=== PATIENT | male | born 1985 | race African-American/Black ===

== ENCOUNTER 2020-04-23 15:10 | Emergency (ER) | payer SELFPAY ==
--- NOTE | 2020-04-23 16:22 | ER ---
Nurse's Notes [facility] Name: Yoav Vogel Age: 35 yrs Sex: Male : 1985 Arrival Date: 04/23/2020 Time: 15:13 Bed 8 Private MD: Diagnosis: Muscle spasm of back Presentation: 04/23 15:20 Chief complaint: Patient states: Left posterior shoulder pain x 1 week, worse in the jl7 morning, denies trauma. Coronavirus screen: Client denies travel out of the [place] in the last 14 days. At this time, the client does not indicate any symptoms associated with coronavirus-19. Ebola Screen: No symptoms or risks identified at this time. Initial Sepsis Screen: Does the patient meet any 2 criteria? No. Patient's initial sepsis screen is negative. Does the patient have a suspected source of infection? No. Patient's initial sepsis screen is negative. Risk Assessment: Do you want to hurt yourself or someone else? Patient reports no desire to harm self or others. Onset of symptoms was April 16, 2020. Care prior to arrival: None. 15:20 Method Of Arrival: Ambulatory 7 15:20 Acuity: TYSON 4 jl7 Triage Assessment: 15:22 General: Appears in no apparent distress. uncomfortable, Behavior is calm, cooperative, jl7 appropriate for age. Pain: Complains of pain in left scapular area Pain currently is 8 out of 10 on a pain scale. Musculoskeletal: Swelling absent. Historical: - Allergies: 15:22 No Known Allergies; jl7 - Home Meds: 15:22 None [Active]; jl7 - PMHx: 15:22 None; jl7 - PSHx: 15:22 None; jl7 - Immunization history:: Adult Immunizations unknown. - Social history:: Smoking status: Patient denies any tobacco usage or history of. Screenin:48 Abuse screen: Denies threats or abuse. Denies injuries from another. Nutritional iw screening: No deficits noted. Tuberculosis screening: No symptoms or risk factors identified. Fall Risk None identified. Assessment: 16:00 General: Appears in no apparent distress. comfortable, Behavior is calm, cooperative. iw Pain: Complains of pain in left subscapular area and left scapular area. Neuro: Level of Consciousness is awake, alert, obeys commands, Oriented to person, place, time, situation, Moves all extremities. Cardiovascular: Patient's skin is warm and dry. Respiratory: Respiratory effort is even, unlabored, Respiratory pattern is regular, symmetrical. GI: No signs and/or symptoms were reported involving the gastrointestinal system. Derm: Skin is intact, is healthy with good turgor. Musculoskeletal: Range of motion: intact in all extremities, Reports pain in left subscapular area and left scapular area. Vital Signs: 15:20 BP 129 / 77; Pulse 60; Resp 17; Temp 98; Pulse Ox 100% ; Weight 68.04 kg; Height 5 ft. jl7 11 in. (180.34 cm); Pain 8/10; 15:20 Body Mass Index 20.92 (68.04 kg, 180.34 cm) jl7 ED Course: 15:13 Patient arrived in ED. as 15:22 Triage completed. jl7 15:22 Arm band placed on right wrist. jl7 15:52 [facility] jr8 15:52 Bruce Crain MD is Attending Physician. jr8 16:00 Patient has correct armband on for positive identification. iw 16:07 Zulay Vargas, RN is Primary Nurse. iw 16:48 No provider procedures requiring assistance completed. Patient did not have IV access iw during this emergency room visit. Administered Medications: 16:35 Drug: TORadol 30 mg Route: IM; Site: right deltoid; iw 16:45 Follow up: Response: No adverse reaction iw Outcome: 16:21 Discharge ordered by . jr8 16:48 Discharged to home ambulatory. iw 16:48 Condition: good 16:48 Discharge instructions given to patient, Instructed on discharge instructions, follow up and referral plans. medication usage, Demonstrated understanding of instructions, follow-up care, medications, Prescriptions given X 2. 16:49 Patient left the ED. iw Signatures: Briseida Carson Irene, RN RN iw Rafael Lynne PA PA jr8 Yuriy Valerio RN RN jl7
--- NOTE | 2020-04-23 16:22 | EDPHYS ---
Physician Documentation [facility] Name: Yoav Vogel Age: 35 yrs Sex: Male : 1985 Arrival Date: 04/23/2020 Time: 15:13 Bed 8 Private MD: ED Physician Bruce Crain HPI: 04/23 16:12 This 35 yrs old Black Male presents to ER via Ambulatory with complaints of Back Pain. jr8 16:12 The pt presented with L paraspinal/scapular back pain since . The pt denies jr8 trauma, and states he just woke up with it hurting. Denies loss of bowel or bladder, numbness, tingling, or difficulty ambulating. Reports pain when rotating to the left and bending over. The patient is calm and in no distress at this time.. 16:19 Associated signs and symptoms: The patient has no apparent associated signs or jr8 symptoms. Severity of symptoms: At their worst the symptoms were mild, in the emergency department the symptoms are unchanged. The patient has not experienced similar symptoms in the past. Historical: - Allergies: 15:22 No Known Allergies; jl7 - Home Meds: 15:22 None [Active]; jl7 - PMHx: 15:22 None; jl7 - PSHx: 15:22 None; jl7 - Immunization history:: Adult Immunizations unknown. - Social history:: Smoking status: Patient denies any tobacco usage or history of. ROS: 16:19 Eyes: Negative for injury, pain, redness, and discharge, ENT: Negative for injury, jr8 pain, and discharge, Neck: Negative for injury, pain, and swelling, Cardiovascular: Negative for chest pain, palpitations, and edema, Respiratory: Negative for shortness of breath, cough, wheezing, and pleuritic chest pain, Abdomen/GI: Negative for abdominal pain, nausea, vomiting, diarrhea, and constipation, MS/Extremity: Negative for injury and deformity, Skin: Negative for injury, rash, and discoloration, Neuro: Negative for headache, weakness, numbness, tingling, and seizure. 16:19 Back: Positive for pain at rest, pain with movement, of the left scapular area and left subscapular area. Exam: 16:19 Eyes: Pupils equal round and reactive to light, extra-ocular motions intact. Lids and jr8 lashes normal. Conjunctiva and sclera are non-icteric and not injected. Cornea within normal limits. Periorbital areas with no swelling, redness, or edema. ENT: Nares patent. No nasal discharge, no septal abnormalities noted. Tympanic membranes are normal and external auditory canals are clear. Oropharynx with no redness, swelling, or masses, exudates, or evidence of obstruction, uvula midline. Mucous membranes moist. Neck: Trachea midline, no thyromegaly or masses palpated, and no cervical lymphadenopathy. Supple, full range of motion without nuchal rigidity, or vertebral point tenderness. No Meningismus. Cardiovascular: Regular rate and rhythm with a normal S1 and S2. No gallops, murmurs, or rubs. Normal PMI, no JVD. No pulse deficits. Respiratory: Lungs have equal breath sounds bilaterally, clear to auscultation and percussion. No rales, rhonchi or wheezes noted. No increased work of breathing, no retractions or nasal flaring. Abdomen/GI: Soft, non-tender, with normal bowel sounds. No distension or tympany. No guarding or rebound. No evidence of tenderness throughout. Skin: Warm, dry with normal turgor. Normal color with no rashes, no lesions, and no evidence of cellulitis. MS/ Extremity: Pulses equal, no cyanosis. Neurovascular intact. Full, normal range of motion. Neuro: Awake and alert, GCS 15, oriented to person, place, time, and situation. Cranial nerves II-XII grossly intact. Motor strength 5/5 in all extremities. Sensory grossly intact. Cerebellar exam normal. Normal gait. 16:19 Back: pain, is absent, ROM is painful, with all movement, normal spinal alignment noted, CVA tenderness, is absent. Vital Signs: 15:20 BP 129 / 77; Pulse 60; Resp 17; Temp 98; Pulse Ox 100% ; Weight 68.04 kg; Height 5 ft. jl7 11 in. (180.34 cm); Pain 8/10; 15:20 Body Mass Index 20.92 (68.04 kg, 180.34 cm) jl7 MDM: 15:52 Patient medically screened. jr8 16:19 Data reviewed: vital signs, nurses notes, and as a result, I will discharge patient. jr8 Data interpreted: Pulse oximetry: on room air is 100 %. Interpretation: normal. Counseling: I had a detailed discussion with the patient and/or guardian regarding: the historical points, exam findings, and any diagnostic results supporting the discharge/admit diagnosis, the need for outpatient follow up, a family practitioner, to return to the emergency department if symptoms worsen or persist or if there are any questions or concerns that arise at home. Administered Medications: 16:35 Drug: TORadol 30 mg Route: IM; Site: right deltoid; iw 16:45 Follow up: Response: No adverse reaction iw Disposition: 04/24 13:53 Co-signature as Attending Physician, Bruce Crain MD I agree with the assessment and itz plan of care. Disposition: 04/23/20 16:21 Discharged to Home. Impression: Muscle spasm of back. - Condition is Stable. - Discharge Instructions: Muscle Cramps and Spasms, Back Exercises, [id number], Heat Therapy. - Prescriptions for Ibuprofen 800 mg Oral Tablet - take 1 tablet by ORAL route every 12 hours As needed take with food; 20 tablet. Robaxin 500 mg Oral Tablet - take 2 tablet by ORAL route every 6 hours As needed; 40 tablet. - Work release form, Medication Reconciliation Form, Thank You Letter, Antibiotic Education, Prescription Opioid Use form. - Follow up: Private Physician; When: As needed; Reason: Recheck today's complaints, Continuance of care, Re-evaluation by your physician. - Problem is new. - Symptoms have improved. Signatures: Bruce Crain MD MD cha Williams, Irene, RN RN Rafael Barton PA PA jr8 Yuriy Valerio RN RN jl7 Corrections: (The following items were deleted from the chart) 04/23 16:49 16:21 04/23/2020 16:21 Discharged to Home. Impression: Muscle spasm of back. Condition iw is Stable. Forms are Medication Reconciliation Form, Thank You Letter, Antibiotic Education, Prescription Opioid Use. Follow up: Private Physician; When: As needed; Reason: Recheck today's complaints, Continuance of care, Re-evaluation by your physician. Problem is new. Symptoms have improved. jr8
[2020-04-23] MEDS ORDERED: KETOROLAC 30 MG/ML INJ ONE (16:44)
[2020-04-23 16:54] VITALS: BP 129/77; TEMP 98; O2SAT 100
== END 2020-04-23 16:49 | disposition home or self-care (01) ==
LOC: ER 15:10
DX: M62.830 Muscle spasm of back (principal)
CPT/HCPCS: 96372; 99283